=== PATIENT | female | born 1980 | race Two or more races ===

== ENCOUNTER 2024-06-23 14:25 | Emergency (ER) | payer MEDICAID, SELFPAY ==
[2024-06-23 14:43] VITALS: BP 181/132; PULSE 95; RESP 16; TEMP 36.6; O2SAT 99
--- NOTE | 2024-06-23 15:05 | PD.EDMEDCL ---
ED Medical Clearance RME/HPI General Chief complaint: Medical Clearance Stated complaint: MEDICAL CLEARANCE Time Seen by Provider: 06/23/24 14:39 Arrival date/time: 06/23/24 14:25 RME / HPI RME / HPI Narrative: 44 year old female with history of hypertension and medication noncompliance presents to the ED BIB [facility] for evaluation of elevated blood pressure. Per officer, at [facility] the blood pressure was 189/110. While in the ED patient has no other complaints and states she would have not come to the ED otherwise. Denies chest pain, cough, shortness of breath, abdominal pain, n/v/d, or urinary symptoms. Patient states she last took her blood pressure medication 4 days ago. Related Information Home Medications ?Medication ?Instructions ?Recorded ?Confirmed albuterol sulfate 90 mcg/actuation 2 inh inhalation QID PRN Dyspnea 04/27/21 04/27/21 breath activated powder inhaler Allergies Allergy/AdvReac Type Severity Reaction Status Date / Time No Known Allergies Allergy Verified 04/27/21 00:21 Review of Systems Review of Systems Narrative Review of Systems: GEN: No fever, no chills, no weight loss EYES: No discharge, no visual changes, no pain HEENT: No ear pain, no congestion, no sore throat PULM: No shortness of breath, no cough, no congestion CV: No chest pain, no dyspnea on exertion, no palpitations GI: No nausea, no vomiting, no diarrhea, no pain, no constipation : No frequency, no urgency and no dysuria MUSC/SKEL No joint pain, no back pain SKIN: No rash NEURO: No weakness, no headache Past Medical History Past Medical History CARDIAC: Positive Cardiac Disorders and Hypertension (NOT MED COMPLIANT) RESPIRATORY: Positive Asthma ED Exam Narrative Physical exam: GENERAL APPEARANCE: Well hydrated, well nourished, in no acute distress. VITALS: Patients hypertensive 181/132. All vitals were reviewed and the pulse ox is 99% on room air which is normal according to my interpretation. HEENT: Normocephalic, atramatic, EOMI, EACs are patent. There is no bulge or retraction. Throat without erythema or exudate. Moist oromucosa. No jaundice NECK: Supple, no JVD or bruits. CARDIOVASCULAR: Heart regular without S3-S4 or murmur. No rubs or gallops. LUNGS/CHEST: Clear to auscultation bilaterally. No rales, rhonchi, or wheezing. Normal inspection. ABDOMEN: Soft, nontender, with normal bowel sounds. No pulsatile masses. No rebound, rigidity, or guarding. No incarcerated hernia. Normal inspection and palpation. EXTREMITIES: Normal inspection and palpation. No edema, clubbing, or cyanosis. Intact CSM SKIN: Warm and dry without rashes. Normal inspection. MUSCULOSKELETAL: Normal inspection. No gross deformity, full ROM all extremities NEURO: Alert and oriented x3. Cranial nerves II through XII grossly intact. There are no other motor or sensory deficits noted. PSYCHIATRIC: Normal mood and affect. No psychosis. Course Quality Measures none Orders Category Date Time Status Sagger Maker Q4H START 00 Care 06/23/24 14:45 Active EKG (ED ONLY) *Do not use* NOW Care 06/23/24 14:45 Active EKG (ED Only) Stat Exams 06/23/24 14:45 Ordered BMP [Basic Metabolic Panel] Stat Lab 06/23/24 14:55 Completed HCG,Qualitative Serum Stat Lab 06/23/24 14:55 Completed Labetalol IV [Trandate IV] Med 06/23/24 14:45 Discontinued 10 mg IVP X1 ONE Vital Signs Vital signs: Vital Signs Temperature 98 F 06/23/24 14:43 Pulse Rate 95 06/23/24 14:43 Respiratory Rate 16 06/23/24 14:43 Blood Pressure 181/132 H 06/23/24 14:43 Pulse Oximetry (%) 99 06/23/24 14:43 Oxygen Delivery Method Room Air 06/23/24 14:43 Medical Clearance MDM Narrative [facility] Narrative:: IYarely am scribing for and in the presence of Dr. Rain. BMP is negative. test is negative. EKG was not able because the patient signed out AMA before hand. The patient came in she was given labetalol by me for the hypertension 181/132. She does have a history of high blood pressure but noncompliant. My intention is to continue to observe her and may need repeated labetalol versus additions of hydralazine to keep the blood pressure within normal range plus we will still waiting for lab result. However the patient signed out AMA and was at 1645. I was informed after the patient left. 1645: Patient left against medical advise Patient data External records reviewed:: [facility] previous records (I reviewed ED visit on 04/27/2021) Clinical information provided by:: patient and law enforcement Social determinants that could affect healthcare access:: none Patient has the following chronic illnesses:: HTN with medication noncompliance How is presenting disease/condition affected by chronic disease/condition?: exacerbated by Evaluation data The following diagnostics were reviewed and interpreted by me:: lab results Lab and/or radiology exams considered but not ordered:: None Interpretation Summary: As noted above Medications / Prescriptions Medications or Prescriptions considered but not ordered:: None Medication administrations:: Medication Administration History Discontinued Medications Labetalol HCl (Labetalol Inj 5 Mg/Ml Vial 20 Ml) 10 mg IVP X1 ONE Stop: 06/23/24 14:46 Last Admin: 06/23/24 15:41 Dose: 10 mg Documented By: HEMANTH Comments: See above Consultations Consultation(s) initiated? (list below): No Diagnosis Medical Clearance Differential Diagnosis: other (Hypertensive urgency, hypertensive emergency, hypertension \) Most likely diagnosis given after review of the tests above:: Hypertension AMA Admission Indicated Admission indicated?: not indicated Admission Request Was there a request for admission?: No Disposition Plan Disposition Plan: other (specify) (Patient signed out AMA at 1645) Discharge Plan Plan Patient Disposition: Left Against Medical Advice Disposition Comment: AMA Prescriptions/Referrals Prescriptions/Med Rec: No Action albuterol sulfate 90 mcg/actuation Aerosol Powdr Breath Activated 2 inh INHALATION QID PRN (Reason: Dyspnea) Problem List Clinical Impression: Hypertension Patient/Caregiver Discharge Instructions Print Language: Polish
[2024-06-23 15:29] LABS: Anion Gap 5 (7-16); BUN/Creatinine Ratio 18 Ratio (12-20); Blood Urea Nitrogen 14 mg/dL (9-23); Calcium 9.6 mg/dL (8.3-10.6); Carbon Dioxide 30.4 mMol/L (20.0-31.0); Chloride 103 mMol/L (98-107); Creatinine (Component) 0.8 mg/dL (0.6-1.3); Glucose 109 mg/dL (74-106); Osmolality,Calculated 277 (275-295); Potassium 3.7 mMol/L (3.4-5.1); Sodium 138 mMol/L (136-145); eGFR > 60 See Note
[2024-06-23 15:36] LABS: HCG,Qualitative Serum Negative
[2024-06-23 15:41] VITALS: BP 181/132; PULSE 95
[2024-06-23] MEDS: LABETALOL INJ 5 MG/ML VIAL 20 ML 10 MG IVP (15:41)
[2024-06-23 16:14] VITALS: BP 171/117; PULSE 93; RESP 18; O2SAT 98
--- NOTE | 2024-06-23 16:45 | PC.NURSE ---
Patient cited out by [employer] and did not want anymore medications or treatment. patient signed out AMA. Risks explained including .
== END 2024-06-23 16:42 | disposition left against medical advice (07) ==
PROVIDERS: Emergency Provider Emergency Medicine
DX: Z02.89 Encounter for other administrative examinations (principal); I10 Essential (primary) hypertension; Z91.148 Patient's other noncompliance with medication regimen for other reason; Z53.29 Procedure and treatment not carried out because of patient's decision for other reasons
CPT/HCPCS: 36415; 80048; 84703; 93005; 96374; 99284; J3490; J1920